=== PATIENT | male | born 1940 | race Caucasian/White ===

== ENCOUNTER 2021-09-23 17:49 | Emergency (ER) | payer MEDICARE, BC ==
[~2021-09-23] VITALS: Ht 185.4 cm; Wt 101.6 kg
[2021-09-23] MEDS ORDERED: CARVEDILOL25 MG PO (18:23)
[2021-09-23] MEDS ORDERED: COZAAR 25 MG TA25 M1 PO (18:23)
[2021-09-23] MEDS ORDERED: LIPITOR 20 MG T20 M1 PO (18:24)
[2021-09-23] MEDS ORDERED: JANUMET 50-1,01 EACH PO (18:24)
[2021-09-23] MEDS ORDERED: ACTOS 30 MG TAB30 M1 PO (18:24)
[2021-09-23] MEDS ORDERED: TAMSULOSIN HCL0.4 MG PO (18:25)
[2021-09-23] MEDS ORDERED: NORVASC5 MG PO (18:25)
[2021-09-23] MEDS ORDERED: VAZALORE81 MG PO (18:26)
[2021-09-23] MEDS ORDERED: PROSCAR 5MG TABL5 M1 PO (18:26)
[2021-09-23 18:41] LABS: URINE BILIRUBIN NEGATIVE (Negative); URINE BLOOD 3+ (Negative); URINE CLARITY CLEAR; URINE COLOR RED; URINE GLUCOSE-RANDOM NEGATIVE (Negative); URINE KETONES NEGATIVE (Negative); URINE LEUKOCYTES 2+ (Negative); URINE NITRITE NEGATIVE (Negative); URINE PROTEIN 2+ (Negative)
[2021-09-23 18:52] LABS: HYALINE CASTS 0-3 Few /LPF (None Seen); SQUAMOUS NONE SEEN /LPF (0-3)
[2021-09-23 18:53] LABS: BACTERIA 1-9 Few /HPF (None Seen); CRYSTALS None Seen /LPF (None Seen); URINE RBC >20 Many /HPF (0-2)
[2021-09-23] MEDS ORDERED: CEFUROXIME500 MG PO (19:25)
[2021-09-23 20:00] VITALS: BP 140/60
== END 2021-09-23 20:00 | disposition home or self-care (01) ==
LOC: M.ERS 17:49
PROVIDERS: Physician Assistant
DX: N39.0 Urinary tract infection, site not specified (principal); Z79.899 Other long term (current) drug therapy; Z79.82 Long term (current) use of aspirin